=== PATIENT | female | born 1980 | race Caucasian/White ===

== ENCOUNTER 2018-01-06 09:21 | Inpatient (IN) | payer MEDICAID ==
[~2018-01-06] VITALS: Ht 157.5 cm; Wt 123.7 kg
[2018-01-19] VITALS (24 sets, daily range): BP systolic 103–151; BP diastolic 42–89; PULSE 58–93; TEMP 97.7–99.9
[2018-01-19] MEDS ORDERED: VITAMIN C500 MG PO (05:56)
[2018-01-19] MEDS ORDERED: CRANBERRY500 M3 PO (05:57)
[2018-01-19] MEDS ORDERED: PRENATAL MVI PO (05:57)
[2018-01-19] MEDS ORDERED: PROBIOTIC FORMU1 CAP PO (05:57)
[2018-01-19] MEDS ORDERED: POTASSIUM PO (05:58)
[2018-01-19] MEDS ORDERED: MACRODANTIN50 MG/CA1 PO (05:58)
[2018-01-19] MEDS ORDERED: ZOLOFT 100MG100 MG PO (05:59)
[2018-01-19] MEDS ORDERED: DESYREL 50MG50 MG PO (05:59)
[2018-01-19] MEDS ORDERED: BUSPAR DIVIDOSE15 MG PO (05:59)
[2018-01-20 06:13] VITALS: BP 110/60; PULSE 63; TEMP 97.9
[2018-01-20 07:00] LABS: BASO % 0.2 % (0.0-2.0); EOS % 0.1 % (0-4.0); GRAN # 15.2 (1.4-6.5); GRAN % 89.2 % (42.2-75.2); HEMOGLOBIN 11.4 g/dl (12.5-16.0); LYMPH # 0.7 (1.2-3.4); LYMPH % 4.1 % (20.0-51.0); MEAN CELL VOLUME 91 fl (80.0-100.0); MEAN CORPUSCULAR HEMOGLOBIN 30 pg (27.0-31.0); MEAN CORPUSCULAR HGB CONC 33 g/dl (33.0-37.0); MEAN PLATELET VOLUME 10.1 fl (7.4-10.4); MONO % 5.9 % (1.7-9.3); PLATELET COUNT 199 K/mm3 (130-400); RED BLOOD COUNT 3.85 M/mm3 (4.10-5.30); REDCELL DISTRIBUTION WIDTH-CV 14.8 % (11.5-14.5)
[2018-01-20 07:31] LABS: CALCIUM 8.2 mg/dL (8.4-10.2); CREATININE, serum 0.62 mg/dL (0.52-1.25)
[2018-01-20 08:32] VITALS: BP 100/53; PULSE 53; TEMP 98.5
[2018-01-20 11:54] VITALS: BP 104/48; PULSE 70; TEMP 97.8
[2018-01-20 16:23] VITALS: BP 97/47; PULSE 70; TEMP 97.8
[2018-01-21] VITALS (11 sets, daily range): BP systolic 88–142; BP diastolic 45–114; PULSE 54–92; TEMP 98.2–101.5
[2018-01-22 01:12] VITALS: TEMP 100.5
[2018-01-22 04:08] VITALS: BP 119/60; PULSE 82; TEMP 99.4
[2018-01-22 05:44] VITALS: TEMP 98.4
[2018-01-22 08:10] VITALS: BP 111/54; PULSE 77; TEMP 98.6
[2018-01-22 12:22] VITALS: BP 113/65; PULSE 79; TEMP 98.6
[2018-01-22 15:36] VITALS: BP 115/61; PULSE 93; TEMP 99.3
== END 2018-01-22 18:17 | disposition home or self-care (01) | DRG 661 ==
LOC: SURG 01-19 05:19 → INPTSU 01-19 05:19 → SURG 01-19 06:30
PROVIDERS: Urology
PROC: 0T744DZ Dilation of Left Kidney Pelvis with Intraluminal Device, Percutaneous Endoscopic Approach (ICD-10-PCS; 2018-01-19)
PROC: 0TC48ZZ Extirpation of Matter from Left Kidney Pelvis, Via Natural or Artificial Opening Endoscopic (ICD-10-PCS; 2018-01-19)
PROC: 0TJ53ZZ Inspection of Kidney, Percutaneous Approach (ICD-10-PCS; principal; 2018-01-19 09:30)
DX: N20.0 Calculus of kidney (principal); Z87.442 Personal history of urinary calculi; F41.9 Anxiety disorder, unspecified; G47.33 Obstructive sleep apnea (adult) (pediatric); F43.10 Post-traumatic stress disorder, unspecified
CPT/HCPCS: A9284; C1726; C1758; C1769; C2617; J0690; J0696; J1100; J1170; J1650; J1885; J2250; J2270; J2405; J2550; J2704; J3010; J7120; Q9967

== ENCOUNTER 2018-02-04 14:31 | Day surgery (SDC) | payer MEDICAID ==
[~2018-02-04] VITALS: Ht 157.5 cm; Wt 121.7 kg
[~2018-02-04 14:31] MED LIST: BUSPAR DIVIDOSE15 MG PO; CRANBERRY500 M3 PO; DESYREL 50MG50 MG PO; MACRODANTIN50 MG/CA1 PO; POTASSIUM PO; PRENATAL MVI PO; PROBIOTIC FORMU1 CAP PO; VITAMIN C500 MG PO; ZOLOFT 100MG100 MG PO
[2018-02-04 15:11] VITALS: BP 127/64; PULSE 79; TEMP 98.7
[2018-02-04] MEDS ORDERED: COLACE 100100 MG/CAP PO (15:18)
[2018-02-04] MEDS ORDERED: PYRIDIUM 100MG100 MG PO ×2 (15:21→18:44)
[2018-02-04] MEDS ORDERED: NATURAL POTASS595 MG PO (15:21)
[2018-02-04 17:50] VITALS: BP 115/61; PULSE 84; TEMP 98.4
[2018-02-04 17:55] VITALS: BP 114/49; PULSE 66
[2018-02-04 18:06] VITALS: BP 119/39; PULSE 72
[2018-02-04 18:15] VITALS: BP 132/56; PULSE 63
[2018-02-04] MEDS ORDERED: NORCO 325 MG-51 TAB PO (18:43)
== END 2018-02-04 19:35 | disposition home or self-care (01) ==
LOC: SDCO 14:31
DX: N20.0 Calculus of kidney (principal); G47.33 Obstructive sleep apnea (adult) (pediatric); G43.909 Migraine, unspecified, not intractable, without status migrainosus; F32.9 Major depressive disorder, single episode, unspecified; F41.9 Anxiety disorder, unspecified; F43.10 Post-traumatic stress disorder, unspecified; Z90.49 Acquired absence of other specified parts of digestive tract
CPT/HCPCS: C1769; J0690; J1100; J1885; J1940; J2405; J2704; J3010; J7120